=== PATIENT | female | born 1945 | race Caucasian/White ===

== ENCOUNTER 2017-10-08 20:18 | Inpatient (IN) | payer MEDICARE ==
[~2017-10-08] VITALS: Ht 162.6 cm; Wt 90.3 kg
[2017-10-08 20:36] VITALS: BP 151/67
[2017-10-08] MEDS ORDERED: HYDROcodone/Acetamin 10/325 tab ORAL ONE (21:00)
[2017-10-08 22:19] LABS: ANION GAP 13 mmol/L (5-15); BLOOD UREA NITROGEN 10 mg/dL (7-18); CALCIUM 8.9 MG/DL (8.5-10.1); CARBON DIOXIDE 22 MMOL/L (21-32); CHLORIDE 103 MMOL/L (98-107); CREATININE 0.8 MG/DL (0.55-1.30); POTASSIUM 4.6 MMOL/L (3.5-5.1); SODIUM 138 MMOL/L (136-145)
[2017-10-08 22:31] LABS: ALANINE AMINOTRANSFERASE 36 U/L (12-78); ALBUMIN 2.5 G/DL (3.4-5.0); ALBUMIN/GLOBULIN RATIO 0.6 (1.0-2.7); ALKALINE PHOSPHATASE 407 U/L (46-116); ASPARTATE AMINO TRANSFERASE 112 U/L (15-37); BILIRUBIN,TOTAL 0.6 MG/DL (0.2-1.0); CREATINE KINASE 118 U/L (26-308)
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
[2017-10-08] MEDS ORDERED: cefTRIAXone 1 GM in NS 55 ML IVPB ONE (23:15)
[2017-10-09 00:12] LABS: BASOPHILS % (AUTO) 1.6 % (0.0-2.0); EOSINOPHILS % (AUTO) 0.5 % (0.0-3.0); HEMATOCRIT 30.5 % (37.0-47.0); HEMOGLOBIN 9.8 G/DL (12.0-16.0); LYMPHOCYTES % (AUTO) 7.7 % (20.0-45.0); MEAN CORPUSCULAR VOLUME 89 FL (80-99); MONOCYTES % (AUTO) 14.3 % (1.0-10.0); PLATELET COUNT 295 K/UL (150-450); RED BLOOD COUNT 3.43 M/UL (4.20-5.40); RED CELL DISTRIBUTION WIDTH 18.2 % (11.6-14.8); WHITE BLOOD COUNT 9.8 K/UL (4.8-10.8)
[2017-10-09 00:20] LABS: BILIRUBIN, URINE NEGATIVE (NEGATIVE); GLUCOSE, URINE (UA) NEGATIVE (NEGATIVE); KETONES,URINE 3+ (NEGATIVE); LEUKOCYTE ESTERASE ,URINE 3+ (NEGATIVE); NITRITE,URINE POSITIVE (NEGATIVE); PH,URINE 6.5 (4.5-8.0); PROTEIN,URINE 2+ (NEGATIVE); UROBILINOGEN,URINE 4 MG/DL (0.0-1.0)
[2017-10-09 00:47] LABS: APPEARANCE,URINE CLOUDY; COLOR,URINE YELLOW
[2017-10-09 01:00] VITALS: BP 134/60
[2017-10-09] MEDS ORDERED: Albuterol/Ipratropium 3ml neb HHN ONE (02:15)
[2017-10-09 04:40] VITALS: BP 147/70
[2017-10-09] MEDS ORDERED: ZYRTEC10 MG ORAL (04:51)
[2017-10-09] MEDS ORDERED: BENADRYL ITCH28.3 G1 TP (04:51)
[2017-10-09] MEDS ORDERED: DOXAZOSIN MESYLA4 MG ORAL (04:51)
[2017-10-09] MEDS ORDERED: CYMBALTA30 MG ORAL (04:51)
[2017-10-09] MEDS ORDERED: ZOFRAN4 M3 ORAL (04:51)
[2017-10-09] MEDS ORDERED: LOVENOX10 MG SUBQ (04:51)
[2017-10-09] MEDS ORDERED: IMODIUM A-1 MG/7.5 M PO (04:51)
[2017-10-09] MEDS ORDERED: CENTRUM COMPLE1 EAC1 PO (04:51)
[2017-10-09] MEDS ORDERED: HYDROCODON-ACE1 EA13 ORAL (04:51)
[2017-10-09 05:50] VITALS: BP 128/53
--- NOTE | 2017-10-09 10:25 | Diagnostic Imaging Report ---
Indication: Shortness of breath Technique: One view of the chest Comparison: none Findings: There is marked elevation the right hemidiaphragm. There is blunting of right costophrenic sulcus. There is generalized interstitial congestion bilaterally. A metallic object projects over the left chest. Surgical clips are seen in the right axilla. The heart is upper limits of normal in size. Impression: Bilateral interstitial edema versus infiltrates Possible small right pleural effusion Other findings as noted
--- NOTE | 2017-10-09 15:56 | Consultation ---
History of Present Illness General Date patient seen: Oct 09, 2017 Time patient seen: 15:50 Chief Complaint: Altered mental status Reason for Consultation: Shortness of breath, RLL infiltrate Present Illness HPI 71 y/o female w/ unkown PMH with altered mental status with increased confusion admitted with finding of delusions as well as UTI and RLL infiltrate. Given abx in ED. Unable to provide history. Feels short of breath. Coughing but not bringing up mucous. Denies hx of lung problems. Allergies: Coded Allergies: CODEINE (Verified Allergy, Unknown, 10/08/17) HYDROMORPHONE (Verified Allergy, Unknown, 10/08/17) LIDOCAINE (Verified Allergy, Unknown, 10/08/17) WARFARIN (Verified Allergy, Unknown, 10/08/17) Uncoded Allergies: ANEF (Allergy, Unknown, 10/08/17) DEXON SUTURES (Allergy, Unknown, 10/08/17) NEOSPORIN (Allergy, Unknown, 10/08/17) TRIPLE X ANTIBIOTIC (Allergy, Unknown, 10/08/17) Medication History Scheduled Cetirizine Hcl* (Zyrtec*), 10 MG ORAL DAILY, (Reported) Doxazosin Mesylate* (Doxazosin Mesylate*), 4 MG ORAL DAILY, (Reported) Duloxetine Hcl* (Cymbalta*), 30 MG ORAL DAILY, (Reported) Enoxaparin* (Lovenox*), 30 MG SUBQ DAILY, (Reported) Hydrocodone Bit/Acetaminophen 10-325* (Hydrocodon-Acetaminophn 10-325*), 1 TAB ORAL Q4H, (Reported) Scheduled PRN Ondansetron* (Zofran*), 4 MG ORAL Q6H PRN for Nausea & Vomiting, (Reported) Miscellaneous Medications Diphenhydramine Hcl/Zinc Acet (Benadryl Itch Stopping Crm), 28.3 GM TP, ( Reported) Loperamide Hcl (Imodium A-D), 1 MG PO, (Reported) Multivitamin/Iron/Folic Acid (Centrum Complete Multivit Tab), 1 EACH PO, ( Reported) Patient History Limited by: medical condition History Provided By: Medical Record Healthcare decision maker refuses to answer Resuscitation status Full Code Advanced Directive on File No Past Medical/Surgical History Past Medical/Surgical History: (1) Metastatic breast cancer Review of Systems All Other Systems: negative except mentioned in HPI Physical Exam General Appearance: confused, mild distress, obese HEENT: normocephalic, atraumatic, mucous membranes moist Neck: non-tender, supple, normal inspection Respiratory/Chest: other - paradoxically breathing with rales bilaterally Cardiovascular/Chest: regular rhythm Abdomen: non tender, soft Extremities: trace edema Last 24 Hour Vital Signs Date Time Temp Pulse Resp B/P (MAP) Pulse Ox O2 Delivery O2 Flow Rate FiO2 10/09/17 12:00 Room Air 10/09/17 12:00 94 10/09/17 08:14 Room Air 10/09/17 06:30 Room Air 10/09/17 05:50 99.0 92 22 128/53 (78) 91 99.0 10/09/17 04:45 97.6 93 20 147/70 94 Nasal Cannula 3.0 32 97.6 10/09/17 04:40 97.6 93 20 147/70 94 Nasal Cannula 97.6 10/09/17 02:29 88 20 97 Nasal Cannula 3.0 32 10/09/17 02:19 89 20 Nasal Cannula 3.0 32 10/09/17 02:19 89 20 93 Nasal Cannula 3.0 32 10/09/17 01:00 97.6 87 20 134/60 98 Room Air 97.6 10/08/17 22:32 98.2 10/08/17 20:36 98.2 100 24 151/67 97 Room Air 98.2 10/08/17 20:13 98.3 100 24 151/67 97 Room Air 98.2 Intake and Output 10/08/17 10/09/17 19:00 07:00 Intake Total 0 ml Balance 0 ml Intake Oral 0 ml Laboratory Tests Test 10/08/17 21:28 10/08/17 23:40 10/08/17 23:45 10/09/17 15:05 Sodium Level 138 MMOL/L (136-145) Potassium Level 4.6 MMOL/L (3.5-5.1) Chloride Level 103 MMOL/L (98-107) Carbon Dioxide Level 22 MMOL/L (21-32) Anion Gap 13 mmol/L (5-15) Blood Urea Nitrogen 10 mg/dL (7-18) Creatinine 0.8 MG/DL (0.55-1.30) Estimat Glomerular Filtration Rate mL/min (>60) Glucose Level 97 MG/DL (74-106) Calcium Level 8.9 MG/DL (8.5-10.1) Total Bilirubin 0.6 MG/DL (0.2-1.0) Aspartate Amino Transf (AST/SGOT) 112 U/L (15-37) H Alanine Aminotransferase (ALT/SGPT) 36 U/L (12-78) Alkaline Phosphatase 407 U/L (46-116) H Total Creatine Kinase 118 U/L (26-308) Troponin I 0.000 ng/mL (0.000-0.056) Total Protein 7.0 G/DL (6.4-8.2) Albumin 2.5 G/DL (3.4-5.0) L Globulin 4.5 g/dL Albumin/Globulin Ratio 0.6 (1.0-2.7) L Thyroid Stimulating Hormone (TSH) 2.306 uiU/mL (0.358-3.740) Salicylates Level 1.8 ug/mL (2.8-20) L Acetaminophen Level < 2 MCG/ML (10-30) L Serum Alcohol < 3 mg/dL White Blood Count 9.8 K/UL (4.8-10.8) Red Blood Count 3.43 M/UL (4.20-5.40) L Hemoglobin 9.8 G/DL (12.0-16.0) L Hematocrit 30.5 % (37.0-47.0) L Mean Corpuscular Volume 89 FL (80-99) Mean Corpuscular Hemoglobin 28.6 PG (27.0-31.0) Mean Corpuscular Hemoglobin Concent 32.2 G/DL (32.0-36.0) Red Cell Distribution Width 18.2 % (11.6-14.8) H Platelet Count 295 K/UL (150-450) Mean Platelet Volume 6.4 FL (6.5-10.1) L Neutrophils (%) (Auto) 76.0 % (45.0-75.0) H Lymphocytes (%) (Auto) 7.7 % (20.0-45.0) L Monocytes (%) (Auto) 14.3 % (1.0-10.0) H Eosinophils (%) (Auto) 0.5 % (0.0-3.0) Basophils (%) (Auto) 1.6 % (0.0-2.0) Erythrocyte Sedimentation Rate 115 MM/HR (0-30) H Urine Color Yellow Urine Appearance Cloudy Urine pH 6.5 (4.5-8.0) Urine Specific [place] 1.010 (1.005-1.035) Urine Protein 2+ (NEGATIVE) H Urine Glucose (UA) Negative (NEGATIVE) Urine Ketones 3+ (NEGATIVE) H Urine Occult Blood 2+ (NEGATIVE) H Urine Nitrite Positive (NEGATIVE) H Urine Bilirubin Negative (NEGATIVE) Urine Urobilinogen 4 MG/DL (0.0-1.0) H Urine Leukocyte Esterase 3+ (NEGATIVE) H Urine RBC 5-10 /HPF (0 - 2) H Urine WBC Tntc /HPF (0 - 2) H Urine Squamous Epithelial Cells Few /LPF (NONE/OCC) Urine Bacteria Many /HPF (NONE) H Urine Opiates Screen Positive (NEGATIVE) H Urine Barbiturates Screen Positive (NEGATIVE) H Phencyclidine (PCP) Screen Negative (NEGATIVE) Urine Amphetamines Screen Negative (NEGATIVE) Urine Benzodiazepines Screen Positive (NEGATIVE) H Urine Cocaine Screen Negative (NEGATIVE) Urine Marijuana (THC) Screen Negative (NEGATIVE) Arterial Blood pH 7.356 (7.350-7.450) Arterial Blood Partial Pressure CO2 47.9 mmHg (35.0-45.0) H Arterial Blood Partial Pressure O2 58.5 mmHg (75.0-100.0) L Arterial Blood HCO3 26.2 mmol/L (22.0-26.0) H Arterial Blood Oxygen Saturation 87.9 % (92.0-98.0) L Arterial Blood Base Excess 0.3 Tulio Test Positive Height (Feet): 5 Height (Inches): 4.00 Weight (Pounds): 199 Medications Current Medications Medications (Trade) Dose Ordered Sig/Therese Route PRN Reason Start Time Stop Time Status Last Admin Dose Admin Acetaminophen (Tylenol) 500 mg Q4H PRN ORAL Mild Pain/Temp > 100.5 10/09/17 05:45 11/08/17 05:44 Piperacillin Sod/ Tazobactam Sod 3.375 gm/Dextrose 110 ml @ 27.5 mls/hr Q8H IV 10/09/17 16:30 10/16/17 16:29 Objective Narrative CXR with R basilar infiltrate Assessment/Plan Assessment/Plan 1. Respiratory insufficiency, mild hypercapnic respiratory failure 2. RLL infiltrate, pneumonia, possibly aspiration 3. Urinary tract infection 4. Delirium/altered mental status 5. Hx metastatic breast cancer Plan: -ABG noted mild acidosis, start BiPAP 12/5 now and breaks as tolerated, ABG in AM -abx: start zosyn -f/u cultures -swallow eval -monitor volumes, edematous, no more IVF -check 2D Echo and BNP -monitor mental status CARYN SPENCER Oct 09, 2017 15:56
[2017-10-09 16:00] VITALS: BP 146/72
[2017-10-09] MEDS: Piperacillin/Tazobactam 3.375 GM in D5W 110 ML IV SCH (16:42)
[2017-10-09] MEDS: Albuterol ud Inhalation HHN SCH (19:00)
[2017-10-09 20:00] VITALS: BP 134/73
--- NOTE | 2017-10-09 23:00 | Consultation ---
DATE OF CONSULTATION: 10/09/2017 INFECTIOUS DISEASE CONSULTATION CONSULTING PHYSICIAN: Yasmany Carbajal M.D. PRIMARY ATTENDING PHYSICIAN: Angel Savage M.D. REASON FOR CONSULT: Pyuria and UTI. HISTORY OF PRESENT ILLNESS: This is a 71-year-old white female admitted yesterday from home because of altered mental status. The patient gives different account for what happened, although she knows the date and location and time. She is not a good source of history. PAST MEDICAL HISTORY: Significant for breast cancer, lumpectomy, chemotherapy, hip pain. States that she had multiple surgeries, hypertension, and questionable history of CVA. ALLERGIES: Allergic to codeine, hydromorphone, , Neosporin, antibiotic, and warfarin. MEDICATIONS: Getting Tylenol, got the dose of albuterol, ipratropium inhaler, and got a dose of ceftriaxone and Levaquin in the ER. SOCIAL HISTORY: Lives at home alone. Denies alcohol, drug abuse, or smoking. She is a . REVIEW OF SYSTEMS: Limited. The patient does not have any complaints. PHYSICAL EXAMINATION: GENERAL APPEARANCE: No acute distress. Seems well-developed. VITAL SIGNS: Temperature 99 degrees, blood pressure 128/53 and pulse 92. HEAD AND NECK: [place] conjunctivae. HEART: S1 and S2. Regular. Normal rate. LUNGS: Clear. ABDOMEN: Soft and nontender. EXTREMITIES: She has mild edema, has stasis dermatitis in the legs bilaterally. SKIN: Multiple bruises. LABORATORY AND DIAGNOSTIC DATA: WBC 9.8, hemoglobin 9.8, hematocrit 30.5, and platelet 295. Sodium 138, potassium 4.6, chloride 103, bicarbonate 22, BUN 10, and creatinine 0.8. AST elevated 112 and alkaline phosphatase elevated 407. Urine toxicology was positive for opiates, barbiturates and benzodiazepines. UA showed wbc's too numerous to count, leukocyte esterase 2+, and nitrite positive. Chest x-ray, bilateral interstitial infiltrate versus edema. IMPRESSION: Pyuria, likely UTI. The patient seems to have altered mental status, does not remember recent events. She has hip pain, says that she has metastatic breast cancer, has anemia, has pulmonary infiltrates and has polysubstance abuse. RECOMMENDATION: 1. We will continue with Rocephin. 2. We will follow up the cultures. At the end of my exam, I thank Dr. Savage for involving me in the care of this patient. Yasmany Carbajal M.D. DR: ANJEL JOB#: [id number] CC:
[2017-10-09] MEDS: Acetaminophen 500mg (ES) tab ORAL PRN (23:30)
[2017-10-10] VITALS: BP 138/63
--- NOTE | 2017-10-10 | Consultation ---
History of Present Illness General Date patient seen: Oct 08, 2017 Chief Complaint: Pain Reason for Consultation: Shortness of breath, RLL infiltrate Present Illness Allergies: Coded Allergies: CODEINE (Verified Allergy, Unknown, 10/08/17) HYDROMORPHONE (Verified Allergy, Unknown, 10/08/17) LIDOCAINE (Verified Allergy, Unknown, 10/08/17) WARFARIN (Verified Allergy, Unknown, 10/08/17) Uncoded Allergies: ANEF (Allergy, Unknown, 10/08/17) DEXON SUTURES (Allergy, Unknown, 10/08/17) NEOSPORIN (Allergy, Unknown, 10/08/17) TRIPLE X ANTIBIOTIC (Allergy, Unknown, 10/08/17) Medication History Scheduled Cetirizine Hcl* (Zyrtec*), 10 MG ORAL DAILY, (Reported) Doxazosin Mesylate* (Doxazosin Mesylate*), 4 MG ORAL DAILY, (Reported) Duloxetine Hcl* (Cymbalta*), 30 MG ORAL DAILY, (Reported) Enoxaparin* (Lovenox*), 30 MG SUBQ DAILY, (Reported) Hydrocodone Bit/Acetaminophen 10-325* (Hydrocodon-Acetaminophn 10-325*), 1 TAB ORAL Q4H, (Reported) Scheduled PRN Ondansetron* (Zofran*), 4 MG ORAL Q6H PRN for Nausea & Vomiting, (Reported) Miscellaneous Medications Diphenhydramine Hcl/Zinc Acet (Benadryl Itch Stopping Crm), 28.3 GM TP, ( Reported) Loperamide Hcl (Imodium A-D), 1 MG PO, (Reported) Multivitamin/Iron/Folic Acid (Centrum Complete Multivit Tab), 1 EACH PO, ( Reported) Patient History Healthcare decision maker refuses to answer Resuscitation status Full Code Advanced Directive on File No Physical Exam Last 24 Hour Vital Signs Date Time Temp Pulse Resp B/P (MAP) Pulse Ox O2 Delivery O2 Flow Rate FiO2 10/09/17 20:00 Room Air 10/09/17 20:00 98.1 90 26 134/73 (93) 94 98.1 10/09/17 19:43 86 10/09/17 19:07 85 22 96 Nasal Cannula 3.0 32 10/09/17 19:07 Nasal Cannula 3.0 32 10/09/17 16:23 83 10/09/17 16:03 92 Nasal Cannula 4.0 36 10/09/17 16:03 Nasal Cannula 4.0 36 10/09/17 16:00 98.2 85 21 146/72 (96) 95 98.2 10/09/17 16:00 Room Air 10/09/17 12:00 Room Air 10/09/17 12:00 94 10/09/17 08:14 Room Air 10/09/17 06:30 Room Air 10/09/17 05:50 99.0 92 22 128/53 (78) 91 99.0 10/09/17 04:45 97.6 93 20 147/70 94 Nasal Cannula 3.0 32 97.6 10/09/17 04:40 97.6 93 20 147/70 94 Nasal Cannula 97.6 10/09/17 02:29 88 20 97 Nasal Cannula 3.0 32 10/09/17 02:19 89 20 Nasal Cannula 3.0 32 10/09/17 02:19 89 20 93 Nasal Cannula 3.0 32 10/09/17 01:00 97.6 87 20 134/60 98 Room Air 97.6 Intake and Output 10/09/17 10/10/17 19:00 07:00 Intake Total 110 ml 50 ml Output Total 450 ml Balance -340 ml 50 ml Intake Oral 50 ml IV Total 110 ml Output Urine Total 450 ml # Voids 5 Laboratory Tests Test 10/09/17 15:05 10/09/17 18:50 Arterial Blood pH 7.356 (7.350-7.450) Arterial Blood Partial Pressure CO2 47.9 mmHg (35.0-45.0) H Arterial Blood Partial Pressure O2 58.5 mmHg (75.0-100.0) L Arterial Blood HCO3 26.2 mmol/L (22.0-26.0) H Arterial Blood Oxygen Saturation 87.9 % (92.0-98.0) L Arterial Blood Base Excess 0.3 Tulio Test Positive CA 15-3 Antigen Pending CA 19-9 Antigen Pending CA 125 Antigen Pending Height (Feet): 5 Height (Inches): 4.00 Weight (Pounds): 199 Medications Current Medications Medications (Trade) Dose Ordered Sig/Therese Route PRN Reason Start Time Stop Time Status Last Admin Dose Admin Acetaminophen (Tylenol) 500 mg Q4H PRN ORAL Mild Pain/Temp > 100.5 10/09/17 05:45 11/08/17 05:44 10/09/17 23:30 Albuterol Sulfate (Proventil) 2.5 mg Q6HRT HHN 10/09/17 19:00 10/14/17 18:59 Piperacillin Sod/ Tazobactam Sod 3.375 gm/Dextrose 110 ml @ 27.5 mls/hr Q8H IV 10/09/17 16:30 10/16/17 16:29 10/09/17 16:42 Chary Márquez MD Oct 10, 2017 00:00
--- NOTE | 2017-10-10 00:08 | Consultation ---
History of Present Illness General Date patient seen: Oct 10, 2017 Chief Complaint: Pain Reason for Consultation: Shortness of breath, RLL infiltrate Present Illness HPI 71-year-old white female admitted yesterday from home because of altered mental status. the pt has cleared up and was able to answer the questions appropriately. the pt pw waxing and waning of consciousness and has anxiety no si/hi Allergies: Coded Allergies: CODEINE (Verified Allergy, Unknown, 10/08/17) HYDROMORPHONE (Verified Allergy, Unknown, 10/08/17) LIDOCAINE (Verified Allergy, Unknown, 10/08/17) WARFARIN (Verified Allergy, Unknown, 10/08/17) Uncoded Allergies: ANEF (Allergy, Unknown, 10/08/17) DEXON SUTURES (Allergy, Unknown, 10/08/17) NEOSPORIN (Allergy, Unknown, 10/08/17) TRIPLE X ANTIBIOTIC (Allergy, Unknown, 10/08/17) Medication History Scheduled Cetirizine Hcl* (Zyrtec*), 10 MG ORAL DAILY, (Reported) Doxazosin Mesylate* (Doxazosin Mesylate*), 4 MG ORAL DAILY, (Reported) Duloxetine Hcl* (Cymbalta*), 30 MG ORAL DAILY, (Reported) Enoxaparin* (Lovenox*), 30 MG SUBQ DAILY, (Reported) Hydrocodone Bit/Acetaminophen 10-325* (Hydrocodon-Acetaminophn 10-325*), 1 TAB ORAL Q4H, (Reported) Scheduled PRN Ondansetron* (Zofran*), 4 MG ORAL Q6H PRN for Nausea & Vomiting, (Reported) Miscellaneous Medications Diphenhydramine Hcl/Zinc Acet (Benadryl Itch Stopping Crm), 28.3 GM TP, ( Reported) Loperamide Hcl (Imodium A-D), 1 MG PO, (Reported) Multivitamin/Iron/Folic Acid (Centrum Complete Multivit Tab), 1 EACH PO, ( Reported) Patient History History Provided By: Patient, Medical Record, PMD Healthcare decision maker refuses to answer Resuscitation status Full Code Advanced Directive on File No Review of Systems Psychiatric: Reports: prior hx, anxiety, depressed feelings Physical Exam General Appearance: no apparent distress, alert Neurologic: oriented x 3, responsive, depressed affect Last 24 Hour Vital Signs Date Time Temp Pulse Resp B/P (MAP) Pulse Ox O2 Delivery O2 Flow Rate FiO2 10/09/17 20:00 Room Air 10/09/17 20:00 98.1 90 26 134/73 (93) 94 98.1 10/09/17 19:43 86 10/09/17 19:07 85 22 96 Nasal Cannula 3.0 32 10/09/17 19:07 Nasal Cannula 3.0 32 10/09/17 16:23 83 10/09/17 16:03 92 Nasal Cannula 4.0 36 10/09/17 16:03 Nasal Cannula 4.0 36 10/09/17 16:00 98.2 85 21 146/72 (96) 95 98.2 10/09/17 16:00 Room Air 10/09/17 12:00 Room Air 10/09/17 12:00 94 10/09/17 08:14 Room Air 10/09/17 06:30 Room Air 10/09/17 05:50 99.0 92 22 128/53 (78) 91 99.0 10/09/17 04:45 97.6 93 20 147/70 94 Nasal Cannula 3.0 32 97.6 10/09/17 04:40 97.6 93 20 147/70 94 Nasal Cannula 97.6 10/09/17 02:29 88 20 97 Nasal Cannula 3.0 32 10/09/17 02:19 89 20 Nasal Cannula 3.0 32 10/09/17 02:19 89 20 93 Nasal Cannula 3.0 32 10/09/17 01:00 97.6 87 20 134/60 98 Room Air 97.6 Intake and Output 10/09/17 10/10/17 19:00 07:00 Intake Total 110 ml 50 ml Output Total 450 ml Balance -340 ml 50 ml Intake Oral 50 ml IV Total 110 ml Output Urine Total 450 ml # Voids 5 Laboratory Tests Test 10/09/17 15:05 10/09/17 18:50 Arterial Blood pH 7.356 (7.350-7.450) Arterial Blood Partial Pressure CO2 47.9 mmHg (35.0-45.0) H Arterial Blood Partial Pressure O2 58.5 mmHg (75.0-100.0) L Arterial Blood HCO3 26.2 mmol/L (22.0-26.0) H Arterial Blood Oxygen Saturation 87.9 % (92.0-98.0) L Arterial Blood Base Excess 0.3 Tulio Test Positive CA 15-3 Antigen Pending CA 19-9 Antigen Pending CA 125 Antigen Pending Height (Feet): 5 Height (Inches): 4.00 Weight (Pounds): 199 Medications Current Medications Medications (Trade) Dose Ordered Sig/Therese Route PRN Reason Start Time Stop Time Status Last Admin Dose Admin Acetaminophen (Tylenol) 500 mg Q4H PRN ORAL Mild Pain/Temp > 100.5 10/09/17 05:45 11/08/17 05:44 10/09/17 23:30 Albuterol Sulfate (Proventil) 2.5 mg Q6HRT HHN 10/09/17 19:00 10/14/17 18:59 Piperacillin Sod/ Tazobactam Sod 3.375 gm/Dextrose 110 ml @ 27.5 mls/hr Q8H IV 10/09/17 16:30 10/16/17 16:29 10/09/17 16:42 Assessment/Plan Assessment/Plan encephalopathy due to [facility] anxiety the pt should be dced after medical clearance Chary Márquez MD Oct 10, 2017 00:08
[2017-10-10] MEDS: Piperacillin/Tazobactam 3.375 GM in D5W 110 ML IV SCH ×3 (00:30→16:32)
[2017-10-10] MEDS: Albuterol ud Inhalation HHN SCH ×4 (01:26→15:40)
[2017-10-10 04:00] VITALS: BP 140/72
--- NOTE | 2017-10-10 04:30 | History and Physical Report ---
DATE OF ADMISSION: 10/08/2017 NOTE: POOR AUDIO HISTORY OF PRESENT ILLNESS: The patient is admitted for intractable pain and dehydration. The patient originally was admitted to Med/Surg; however, when I called to give admission orders, the nurse notified me that she is lethargic and has shallow breathing and hypoxic, I transferred to [facility]. The patient initially came in with increased confusion, apparently was on 5150 hold due to delusions, has history of breast cancer and also admitted for possible UTI and possible pneumonia, mainly chest x-ray shows lung infection with right lower infiltrate, was given Rocephin and Levaquin in the ER. The patient is more alert and is breathing fine at this point, is on oxygen minimal amount. The patient right now is oriented x3. Complains of chronic left hip pain, which is chronic. The patient at times sounds delusional, however, denies nausea, vomiting, or diarrhea. Denies fever or chills. Denies shortness of breath. Denies cough. PAST MEDICAL HISTORY: Significant for allergies, history of mood disorder, history of metastatic breast cancer, and history of left hip pain. PAST SURGICAL HISTORY: Right and left lower extremity leg surgery, eye surgery, and lumpectomy. ALLERGIES: , Codeine, Dexon sutures, hydromorphone, lidocaine, Neosporin, triple antibiotic, and warfarin. FAMILY HISTORY: Noncontributory. SOCIAL HISTORY: Denies history of smoking, alcohol, or illicit drugs. Lives at home by herself. REVIEW OF SYSTEMS: HEENT: Denies headaches. RESPIRATORY: Denies shortness of breath. Denies cough. CARDIOVASCULAR: Denies chest pain. GASTROINTESTINAL: Denies nausea, vomiting, or diarrhea. EXTREMITY: She does have chronic left hip pain. CENTRAL NERVOUS SYSTEMS: Denies change in vision or speech pattern. Denies headache. PHYSICAL EXAMINATION: VITAL SIGNS: Temperature is 97.6 degrees, pulse 93, and blood pressure 147/70. HEENT: PERRLA. NECK: Supple. No lymphadenopathy. CHEST: Clear to auscultation. CARDIOVASCULAR: Regular rate and rhythm. No murmurs or extra sounds. GASTROINTESTINAL: Soft. Positive bowel sounds. No organomegaly. EXTREMITIES: No edema. Reflexes equal on both sides. She does have dry ecchymosis on the right arm. NEUROLOGIC: Generalized weakness. Reflexes equal on both sides. Alert and oriented x3. LABORATORY AND DIAGNOSTIC DATA: WBC of 9.8, hemoglobin 9.8, and platelets of 292. Sodium 138, potassium 4.6, BUN of 10, and creatinine 0.8. AST of 112, ALT of 36, and alkaline phosphatase of 407. Total bilirubin of 0.6. ASSESSMENT AND PLAN: Altered mental status, dehydration, and possible UTI. I have asked Dr. Márquez, Dr. Menendez, Dr. Carbajal, and Dr. Rosales to see the patient for the shallow breathing as well as for the management of UTI as well as for management of the pneumonia as well as for the management of confusion and dehydration. So, Dr. Márquez, Dr. Menendez, Dr. Carbajal, and Dr. Rosales have been consulted for the above-mentioned diagnoses and treatment. Angel Savage M.D. DR: WILBERT JOB#: [id number] CC:
--- NOTE | 2017-10-10 05:00 | Consultation ---
DATE OF CONSULTATION: 10/09/2017 HEMATOLOGY/ONCOLOGY CONSULTATION CONSULTING PHYSICIAN: Colton Lantigua M.D. REQUESTING PHYSICIAN: Angel Savage M.D. REASON FOR CONSULTATION: Metastatic breast cancer. IDENTIFICATION: Dear Dr. Savage: The patient is a pleasant 71-year-old female with past medical history significant for metastatic breast cancer, dehydration, pneumonia, history of delirium, has been seen by Pulmonary team, at this time she presents with delusions as well as UTI as well as pneumonia, coughing up some mucus. Pulmonary team consulted. Hematology team consulted given ongoing anemia. PAST MEDICAL HISTORY: As noted above, metastatic breast cancer, bilateral hip pain for almost four years. She is currently on chemotherapy, treatment changed several months ago. PAST SURGICAL HISTORY: None noted. ALLERGIES: Dilaudid, . SOCIAL HISTORY: No alcohol, tobacco, or illicit drug use. REVIEW OF SYSTEMS: CONSTITUTIONAL: No fevers, chills, or night sweats. SKIN: No rashes, bumps, or itching. HEENT: No headache, hearing or visual changes. BREASTS: . PULMONARY: No cough, sputum, or shortness of breath. GASTROINTESTINAL: No nausea, vomiting, or diarrhea. GENITOURINARY: No dysuria, frequency, or urgency. MUSCULOSKELETAL: No joint swelling, muscle pain, or trauma. PHYSICAL EXAMINATION: VITAL SIGNS: Reviewed. GENERAL: No acute distress. LUNGS: Decreased breath sounds. CARDIOVASCULAR: Regular rate. No S3 or S4. ABDOMEN: Nondistended, nontender. EXTREMITIES: No cyanosis, swelling, or edema. LABORATORY AND DIAGNOSTIC DATA: WBC is , hemoglobin 9.8, hematocrit 31, and platelet count of 295. Imaging, chest x-ray showed bilateral edema. ASSESSMENT AND RECOMMENDATIONS: 1. Metastatic breast cancer. Continue chemotherapy p.o. medication with outpatient oncologist. 2. Recurrent shortness of breath, immunosuppression due to chemotherapy drugs. 3. Anemia due to underlying chronic disease. Continue to closely monitor. Hemoglobin goal is above 7. 4. Delirium and altered mental status, potentially secondary to infection. 5. UTI, on broad-spectrum antibiotics. 6. . Obtain 2D echo. 7. antibiotics. I appreciate the consultation. Thank you very much for the consultation. Colton Lantigua M.D. DR: NELLI JOB#: [id number] CC:
[2017-10-10 08:27] VITALS: BP 141/59
--- NOTE | 2017-10-10 11:29 | Infectious Diseases Prog Note ---
Assessment/Plan Assessment/Plan antibiotics : zosyn A 1. gram negative UTI 2. gram positive sepsis 3. pneumonia 4. breast cancer P 1. continue zosyn 2. start iv vancomycin 3. will follow up cultures Subjective Constitutional: Denies: fever, chills Respiratory: Denies: shortness of breath, dry cough Gastrointestinal/Abdominal: Denies: nausea, vomiting, diarrhea Musculoskeletal: Reports: pain Allergies: Coded Allergies: CODEINE (Verified Allergy, Unknown, 10/08/17) HYDROMORPHONE (Verified Allergy, Unknown, 10/08/17) LIDOCAINE (Verified Allergy, Unknown, 10/08/17) WARFARIN (Verified Allergy, Unknown, 10/08/17) Uncoded Allergies: ANEF (Allergy, Unknown, 10/08/17) DEXON SUTURES (Allergy, Unknown, 10/08/17) NEOSPORIN (Allergy, Unknown, 10/08/17) TRIPLE X ANTIBIOTIC (Allergy, Unknown, 10/08/17) Objective Vital Signs Last 24 Hour Vital Signs Date Time Temp Pulse Resp B/P (MAP) Pulse Ox O2 Delivery O2 Flow Rate FiO2 10/10/17 08:32 Room Air 10/10/17 08:27 96.4 88 18 141/59 (86) 96 96.4 10/10/17 08:00 87 10/10/17 07:57 87 20 98 Nasal Cannula 4.0 32 10/10/17 07:51 86 20 93 Nasal Cannula 4.0 36 10/10/17 07:51 Nasal Cannula 4.0 36 10/10/17 07:51 93 Nasal Cannula 4.0 36 10/10/17 04:00 Room Air 10/10/17 04:00 97.2 91 28 140/72 (94) 94 97.2 10/10/17 03:50 84 10/10/17 01:27 83 20 98 Nasal Cannula 3.0 32 10/10/17 01:20 81 20 95 Nasal Cannula 3.0 32 10/10/17 00:02 89 10/10/17 00:00 Room Air 10/10/17 00:00 97.4 83 18 138/63 (88) 96 97.4 10/09/17 20:00 Room Air 10/09/17 20:00 98.1 90 26 134/73 (93) 94 98.1 10/09/17 19:43 86 10/09/17 19:07 85 22 96 Nasal Cannula 3.0 32 10/09/17 19:07 Nasal Cannula 3.0 32 10/09/17 16:23 83 10/09/17 16:03 92 Nasal Cannula 4.0 36 10/09/17 16:03 Nasal Cannula 4.0 36 10/09/17 16:00 98.2 85 21 146/72 (96) 95 98.2 10/09/17 16:00 Room Air 10/09/17 12:00 Room Air 10/09/17 12:00 94 Height (Feet): 5 Height (Inches): 4.00 Weight (Pounds): 199 Respiratory/Chest: lungs clear Cardiovascular: normal rate, regular rhythm, no gallop/murmur Abdomen: soft, non tender Extremities: no edema Microbiology Date/Time Source Procedure Growth Status 10/08/17 23:40 Blood Blood Culture - Preliminary NO GROWTH AFTER 24 HOURS Resulted 10/08/17 23:25 Blood Blood Culture - Preliminary Gram Positive Cocci Resulted 10/08/17 23:45 Urine,Clean Catch Urine Culture - Preliminary Gram Negative [place] Resulted Laboratory Tests Test 10/09/17 15:05 10/09/17 18:50 10/10/17 03:54 Arterial Blood pH 7.356 (7.350-7.450) Arterial Blood Partial Pressure CO2 47.9 mmHg (35.0-45.0) H Arterial Blood Partial Pressure O2 58.5 mmHg (75.0-100.0) L Arterial Blood HCO3 26.2 mmol/L (22.0-26.0) H Arterial Blood Oxygen Saturation 87.9 % (92.0-98.0) L Arterial Blood Base Excess 0.3 Tulio Test Positive CA 15-3 Antigen Pending CA 19-9 Antigen Pending CA 125 Antigen Pending Pro-B-Type Natriuretic Peptide 614 pg/mL (0-125) H Current Medications Medications (Trade) Dose Ordered Sig/Therese Route PRN Reason Start Time Stop Time Status Last Admin Dose Admin Acetaminophen (Tylenol) 500 mg Q4H PRN ORAL Mild Pain/Temp > 100.5 10/09/17 05:45 11/08/17 05:44 10/09/17 23:30 Albuterol Sulfate (Proventil) 2.5 mg Q6HRT HHN 10/09/17 19:00 10/14/17 18:59 10/10/17 07:51 Piperacillin Sod/ Tazobactam Sod 3.375 gm/Dextrose 110 ml @ 27.5 mls/hr Q8H IV 10/09/17 16:30 10/16/17 16:29 10/10/17 08:49 MIREYA LINDSAY Oct 10, 2017 11:29
[2017-10-10 12:00] VITALS: BP 132/66
[2017-10-10] MEDS ORDERED: Vancomycin 1250mg/D5W 250ml IVPB SCH (14:00)
--- NOTE | 2017-10-10 14:22 | General Progress Note ---
Assessment/Plan Status: stable Assessment/Plan 1. Metastatic breast cancer. Continue chemotherapy p.o. medication with outpatient oncologist. 2. Recurrent shortness of breath, immunosuppression due to chemotherapy drugs. --> CXR: Bilateral interstitial edema versus infiltrates. Possible small right pleural effusion 3. Anemia due to underlying chronic disease. --> Continue to closely monitor. --> Hemoglobin goal is above 7. --> CURRENT HGB 9.9 4. Delirium and altered mental status, potentially secondary to infection. 5. UTI, on broad-spectrum antibiotics. --> Blood result from lab,patient is Gram positive cocci, --> CURRENT WBC 9.8 The time the note was entered does not necessarily correspond to the time the patient was seen. Subjective Date patient seen: Oct 10, 2017 ROS Limited/Unobtainable: Yes Hematologic/Lymphatic: Reports: anemia Allergies: Coded Allergies: CODEINE (Verified Allergy, Unknown, 10/08/17) HYDROMORPHONE (Verified Allergy, Unknown, 10/08/17) LIDOCAINE (Verified Allergy, Unknown, 10/08/17) WARFARIN (Verified Allergy, Unknown, 10/08/17) Uncoded Allergies: ANEF (Allergy, Unknown, 10/08/17) DEXON SUTURES (Allergy, Unknown, 10/08/17) NEOSPORIN (Allergy, Unknown, 10/08/17) TRIPLE X ANTIBIOTIC (Allergy, Unknown, 10/08/17) All Systems: reviewed and negative except above Subjective Pt awake and alert. No acute events. Blood result from lab,patient is Gram positive cocci. Objective Last 24 Hour Vital Signs Date Time Temp Pulse Resp B/P (MAP) Pulse Ox O2 Delivery O2 Flow Rate FiO2 10/10/17 12:00 97.4 96 18 132/66 (88) 96 97.4 10/10/17 12:00 Room Air 10/10/17 12:00 91 10/10/17 08:32 Room Air 10/10/17 08:27 96.4 88 18 141/59 (86) 96 96.4 10/10/17 08:00 87 10/10/17 07:57 87 20 98 Nasal Cannula 4.0 32 10/10/17 07:51 86 20 93 Nasal Cannula 4.0 36 10/10/17 07:51 Nasal Cannula 4.0 36 10/10/17 07:51 93 Nasal Cannula 4.0 36 10/10/17 04:00 Room Air 10/10/17 04:00 97.2 91 28 140/72 (94) 94 97.2 10/10/17 03:50 84 10/10/17 01:27 83 20 98 Nasal Cannula 3.0 32 10/10/17 01:20 81 20 95 Nasal Cannula 3.0 32 10/10/17 00:02 89 10/10/17 00:00 Room Air 10/10/17 00:00 97.4 83 18 138/63 (88) 96 97.4 10/09/17 20:00 Room Air 10/09/17 20:00 98.1 90 26 134/73 (93) 94 98.1 10/09/17 19:43 86 10/09/17 19:07 85 22 96 Nasal Cannula 3.0 32 10/09/17 19:07 Nasal Cannula 3.0 32 10/09/17 16:23 83 10/09/17 16:03 92 Nasal Cannula 4.0 36 10/09/17 16:03 Nasal Cannula 4.0 36 10/09/17 16:00 98.2 85 21 146/72 (96) 95 98.2 10/09/17 16:00 Room Air Intake and Output 10/09/17 10/10/17 19:00 07:00 Intake Total 110 ml 160.00 ml Output Total 450 ml 700 ml Balance -340 ml -540.00 ml Intake Oral 50 ml IV Total 110 ml 110.00 ml Output Urine Total 450 ml 700 ml # Voids 5 Laboratory Tests 10/09/17 15:05: Arterial Blood pH 7.356, Arterial Blood Partial Pressure CO2 47.9H, Arterial Blood Partial Pressure O2 58.5L, Arterial Blood HCO3 26.2H, Arterial Blood Oxygen Saturation 87.9L, Arterial Blood Base Excess 0.3, Tulio Test Positive 10/09/17 18:50: CA 15-3 Antigen [Pending], CA 19-9 Antigen [Pending], CA 125 Antigen [Pending] 10/10/17 03:54: Pro-B-Type Natriuretic Peptide 614H Height (Feet): 5 Height (Inches): 4.00 Weight (Pounds): 199 General Appearance: no apparent distress EENT: PERRL/EOMI Neck: normal alignment Cardiovascular: normal peripheral pulses Respiratory/Chest: no respiratory distress Abdomen: soft Kleynberg,Colton L. MD Oct 10, 2017 14:22
[2017-10-10 16:26] VITALS: BP 145/56
[2017-10-10] MEDS: Acetaminophen 500mg (ES) tab ORAL PRN (17:00)
[2017-10-10] MEDS ORDERED: Tubing IV Secondary IV ONE (17:16)
[2017-10-10] MEDS ORDERED: NS 275ml ONE (17:16)
--- NOTE | 2017-10-10 17:25 | General Progress Note ---
Assessment/Plan Problem List: (1) Delirium ICD Codes: R41.0 - Disorientation, unspecified SNOMED: 5612107, [id number] (2) Pneumonia ICD Codes: J18.9 - Pneumonia, unspecified organism SNOMED: 449828737 (3) UTI (urinary tract infection) ICD Codes: N39.0 - Urinary tract infection, site not specified SNOMED: 05948021 Qualifiers: Qualified Codes: N39.0 - Urinary tract infection, site not specified Status: progressing Assessment/Plan afebrile not hypoxic 'i== pna is imroving vitals stableafebrile no aucte events Subjective ROS Limited/Unobtainable: Yes Allergies: Coded Allergies: CODEINE (Verified Allergy, Unknown, 10/08/17) HYDROMORPHONE (Verified Allergy, Unknown, 10/08/17) LIDOCAINE (Verified Allergy, Unknown, 10/08/17) WARFARIN (Verified Allergy, Unknown, 10/08/17) Uncoded Allergies: ANEF (Allergy, Unknown, 10/08/17) DEXON SUTURES (Allergy, Unknown, 10/08/17) NEOSPORIN (Allergy, Unknown, 10/08/17) TRIPLE X ANTIBIOTIC (Allergy, Unknown, 10/08/17) Objective Last 24 Hour Vital Signs Date Time Temp Pulse Resp B/P (MAP) Pulse Ox O2 Delivery O2 Flow Rate FiO2 10/10/17 17:00 97.7 10/10/17 16:26 97.7 100 19 145/56 (85) 96 97.7 10/10/17 16:25 Room Air 10/10/17 14:43 87 18 94 Nasal Cannula 3.0 32 10/10/17 14:43 87 18 94 Nasal Cannula 3.0 32 10/10/17 12:00 97.4 96 18 132/66 (88) 96 97.4 10/10/17 12:00 Room Air 10/10/17 12:00 91 10/10/17 08:32 Room Air 10/10/17 08:27 96.4 88 18 141/59 (86) 96 96.4 10/10/17 08:00 87 10/10/17 07:57 87 20 98 Nasal Cannula 4.0 32 10/10/17 07:51 86 20 93 Nasal Cannula 4.0 36 10/10/17 07:51 Nasal Cannula 4.0 36 10/10/17 07:51 93 Nasal Cannula 4.0 36 10/10/17 04:00 Room Air 10/10/17 04:00 97.2 91 28 140/72 (94) 94 97.2 10/10/17 03:50 84 10/10/17 01:27 83 20 98 Nasal Cannula 3.0 32 10/10/17 01:20 81 20 95 Nasal Cannula 3.0 32 10/10/17 00:02 89 10/10/17 00:00 Room Air 10/10/17 00:00 97.4 83 18 138/63 (88) 96 97.4 10/09/17 20:00 Room Air 10/09/17 20:00 98.1 90 26 134/73 (93) 94 98.1 10/09/17 19:43 86 10/09/17 19:07 85 22 96 Nasal Cannula 3.0 32 10/09/17 19:07 Nasal Cannula 3.0 32 Intake and Output 10/09/17 10/10/17 19:00 07:00 Intake Total 110 ml 160.00 ml Output Total 450 ml 700 ml Balance -340 ml -540.00 ml Intake Oral 50 ml IV Total 110 ml 110.00 ml Output Urine Total 450 ml 700 ml # Voids 5 Laboratory Tests 10/09/17 18:50: CA 15-3 Antigen [Pending], CA 19-9 Antigen [Pending], CA 125 Antigen [Pending] 10/10/17 03:54: Pro-B-Type Natriuretic Peptide 614H Height (Feet): 5 Height (Inches): 4.00 Weight (Pounds): 199 Cardiovascular: regular rhythm Respiratory/Chest: lungs clear Abdomen: soft Angel Savage MD Oct 10, 2017 17:25
[2017-10-11] MEDS ORDERED: Vancomycin 750mg/NS 250ml IVPB SCH (02:00)
--- NOTE | 2017-10-13 10:12 | Discharge Summary ---
Discharge Summary Discharge Summary _ DATE OF ADMISSION: 10/08/2017 DATE OF DISCHARGE: 10/10/2017 REASON FOR ADMISSION: 71 years old female with past medical history of hypertension , metastatic breast cancer, on chemotherapy, presented to emergency department with altered mental status. Paramedics were called by police department , where the patient was filing police report . Patient appeared to be delusional in the department, and paramedics were called. Patient reported bilateral hip pain ,more pronounced on the left side. She denied any trauma to her hips and was able to ambulate without difficulty. Pain about the same for the last 4 years , usually controlled with [place], waking her up at night frequently. According to patient , she had breast cancer with metastasis to hips , which were present for 4 years. Patient was currently on chemotherapy which changed few months ago. Patient reported fall out of the bed last week. Bruises noted on the right face and right chest. She appeared to have bruises on the left upper arm as well. Upon presentation vital signs revealed no fever, respiratory rate 24. Pulse oximetry stable on room air. Troponin negative, electrolytes and renal parameters stable. Urinalysis revealed evidence of UTI. Urine toxicology screen was positive for benzodiazepine , opiates and barbiturates. Hemoglobin 9.8 hematocrit 30.5 ESR 115 Albumin 2.5 AST 112 , ALT 36 Chest x-ray revealed right lower lobe infiltrate Neurological exam was nonfocal. She denied headache. Per ED doctor, CT scan of the head was not indicated at that time. X-ray of bilateral hip were not indicated since pain was chronic. She denies suicidal or homicidal ideation. Patient was placed on 5150 en route ro ED and was in need to be evaluated by psychiatrist. Patient admitted with diagnosis of pneumonia , urinary tract infection , metastatic breast cancer, dehydration, delirium, status post recent fall , bilateral hip pain, anemia. CONSULTANTS: pulmonary Dr. Brown ID specialist Dr. Amaro distributor advertising material/oncologist Dr. Lantigua psychiatrist [facility] COURSE: Patient admitted to [facility]. Patient started on IV hydration. Patient started on empiric antibiotics. Infectious disease doctor closely followed. Urine culture revealed Escherichia coli ESBL. Blood culture revealed Staphylococcus coagulase negative. Antibiotic regimen optimized as per ID specialist recommendations. School Principal closely followed. ABG revealed mild acidosis. Patient started on BiPAP and was able quickly weaned to oxygen via nasal cannula. Swallow evaluation was ordered. Patient initially was on the IV fluids but appeared to be edematous. IV fluids discontinued. Volumes were clsoely monitored. Echocardiogram revealed preserved ejection fraction 55-60% and right ventricular systolic pressure of 58, consistent with mild pulmonary hypertension, as well as [id number] tricuspid regurgitation. Psychiatrist closely followed. Psychiatrist diagnosed patient with anxiety and encephalopathy secondary to general medical condition (infectious process and metastatic process metastatic breast cancer.). Control Valve Technician closely followed . Cancer tumor markers showed elevated CA-15-3 , elevated CA-125. CA-19-9 was within normal limits. Hemoglobin and hematocrit were closely monitored with goal to keep hemoglobin above 7. According to distributor advertising material, anemia was due to underlying chronic disease. Last hemoglobin 9.8. Control Valve Technician recommended continue chemotherapy . Patient required higher level of care for further management and was subsequently transferred to.[facility] for further management. FINAL DIAGNOSES: Gram-positive sepsis Pneumonia right lower lobe UTI with Escherichia coli ESBL Encephalopathy secondary to general medical condition Mild hypercapnic respiratory failure -resolved Metastatic breast CA Dehydration Anemia due to underlying chronic disease DISCHARGE MEDICATIONS: List of medication was sent with the patient DISCHARGE INSTRUCTIONS: Patient was transferred to [facility] for further management. I have been assigned to dictate discharge summary for this account. I was not involved in the patient's management. Sagrario Diez NP Oct 13, 2017 10:12
--- NOTE | 2017-10-14 11:11 | Cardiology Report ---
APPROVED REPORT EXAM: Two-dimensional and M-mode echocardiogram with Doppler and color Doppler. INDICATION SHOTNESS OF BREATH M-Mode DIMENSIONS IVSd1.1 (0.7-1.1cm)Left Atrium (MM)3.4 (1.6-4.0cm) LVDd5.1 (3.5-5.6cm)Aortic Root3.0 (2.0-3.7cm) PWd1.8 (0.7-1.1cm)Aortic Cusp Exc.1.5 (1.5-2.0cm) IVSs2.0 cm LVDs3.1 (2.5-4.0cm) PWs2.2 cm Normal left ventricular chamber size, systolic function and wall motion to extent visualized. Left ventricular ejection fraction estimated to be 55-60%. Moderate left ventricular hypertrophy by 2-D. Small posterior pericardial effusion. All other cardiac chamber sizes are within normal limits. Focal aortic valve sclerosis with adequate cusp excursion. Thickened mitral valve leaflets with normal excursion. Mitral annulus and aortic root calcification. Pulmonic valve not well visualized. Normal tricuspid valve structure. A color flow and spectral Doppler study was performed and revealed: No aortic regurgitation. Mild mitral regurgitation. Mitral diastolic velocities suggest reduced left ventricular relaxation c/w mild LV diastolic dysfunction (Grade I ). Mild to moderate tricuspid regurgitation. Tricuspid systolic velocities suggests peak right ventricular systolic pressure of 58 mmHg,consistent with moderate pulmonary hypertension . No Pulmonic regurgitation present.
--- NOTE | 2017-10-16 00:52 | Cardiology Report ---
APPROVED REPORT EKG Measurement Heart [id number] Normal sinus rhythm Possible Left atrial enlargement Low voltage QRS Left anterior fascicular block Cannot exclude septal infarct, age undetermined Abnormal ECG
== END 2017-10-10 17:45 | disposition designated cancer center or children's hospital, planned readmission (85) | DRG 871 ==
LOC: EDBD 20:18 → EMR 20:38 → 4E 22:44 → EDBEDREQ 10-09 04:27 → 2W 10-09 06:01
DX: A41.9 Sepsis, unspecified organism (principal); G93.40 Encephalopathy, unspecified; J18.9 Pneumonia, unspecified organism; J96.92 Respiratory failure, unspecified with hypercapnia; N39.0 Urinary tract infection, site not specified; C79.51 Secondary malignant neoplasm of bone; B96.20 Unspecified Escherichia coli [E. coli] as the cause of diseases classified elsewhere; Z16.12 Extended spectrum beta lactamase (ESBL) resistance; D63.8 Anemia in other chronic diseases classified elsewhere; Z85.3 Personal history of malignant neoplasm of breast; E86.0 Dehydration; Z88.6 Allergy status to analgesic agent; Z88.8 Allergy status to other drugs, medicaments and biological substances; R41.0 Disorientation, unspecified
CPT/HCPCS: 36415; 36600; 71045; 80053; 80307; 80329; 81003; 82550; 82803; 83880; 84443; 84484; 85025; 85651; 86300; 86304; 87040; 87086; 87181; 93005; 93306; 94640; 94660; 94664; 94760; J7620